=== PATIENT | female | born 1970 | race Caucasian/White ===

== ENCOUNTER 2023-06-16 02:22 | Emergency (ER) | payer MEDICAID ==
[~2023-06-16] VITALS: Ht 149.9 cm; Wt 75.0 kg
[2023-06-16 02:35] VITALS: O2SAT 99
[2023-06-16 04:17] VITALS: BP 148/92; PULSE 91; RESP 16
[2023-06-16 04:19] VITALS: TEMP 98.6
[2023-06-16] MEDS: ACETAMINOPHEN 325MG TABLET PO ONE (04:19)
[2023-06-16] MEDS: CYCLOBENZAPRINE 10MG TABLET PO ONE (04:20)
[2023-06-16] MEDS ORDERED: TOPUD PO (05:18)
[2023-06-16] MEDS ORDERED: CYCL10TA21 MT (05:18)
== END 2023-06-16 05:44 | disposition home or self-care (01) ==
LOC: ER 02:22
DX: M25.561 Pain in right knee (principal); M25.531 Pain in right wrist; M54.2 Cervicalgia; I10 Essential (primary) hypertension; Z88.0 Allergy status to penicillin; V49.9XXA Car occupant (driver) (passenger) injured in unspecified traffic accident, initial encounter; Y93.89 Activity, other specified; Y92.89 Other specified places as the place of occurrence of the external cause; Y99.8 Other external cause status
CPT/HCPCS: 73110; 73562; 99284